=== PATIENT | female | born 1960 | race Caucasian/White ===

== ENCOUNTER → 2021-09-04 | Outpatient (CLI) | payer BC ==
[~2021-09-04] MED LIST: BEBTELOVIMAB (EUA) 175 MG/2 ML VIAL IV ONE; SODIUM CHLORIDE 0.9% 500 ML 500 ML in EMPTY BAG 1 BAG IV PRN
[2021-09-04 13:02] VITALS: RESP 16; TEMP 98.2
[2021-09-04 13:57] VITALS: BP 130/68; PULSE 63
== END ==
LOC: PROCWHC3 12:44
PROVIDERS: ATTEND Physician Assistant
DX: U07.1 COVID-19 (principal); E66.9 Obesity, unspecified; Z68.28 Body mass index [BMI] 28.0-28.9, adult
CPT/HCPCS: 96374; Q0222; M0222

== ENCOUNTER → 2023-07-11 | Outpatient (CLI) | payer BC ==
[2023-07-11 10:01] VITALS: BP 159/87; PULSE 66; RESP 16; TEMP 98.5
--- NOTE | 2023-07-11 13:16 | P.PAINPG ---
PQRS Measure Charge Sheet Comment: HISTORY OF PRESENT ILLNESS: A 62 yr old female as a referral from Dr Cee presents today w severe and chronic neck pain secondary to DDD, spondylosis and facet arthropathy without myelopathy for evaluation. Pt states pain level is provoked at 9/10 in intensity, constant, localized in the mid to lower cervical spine, predominantly axial, achy in character w occasional shooting pain towards the BL shoulders. Pain is provoked by over activity. Pain is alleviated by PT x 6 wks in Fall 2022, physician guided exercises/ stretches daily since Fall 2022, massage therapy monthly x 3 sessions in 2022, medications (Mobic), heat, manual massage, repositioning and rest. Cervical disability score at 19. PMH: OA, Hyopothyroidism, Hyperlipidemia PSH: Appendectomy, C section, R Shoulder Surgery, L Wrist Surgery SH: Negative x3 FH: Non contributory All: See list Meds: See list REVIEW OF ORGAN SYSTEMS: CONSTITUTIONAL: No fevers or chills. No recent weight loss. NEUROLOGICAL: + numbness and tingling along the distal extremities. No seizure disorders or headaches. MUSCULOSKELETAL: + pain PSYCHIATRIC: Denies current depression or suicidal thoughts. Physical Examinations : Constitutional : Cooperative , not in acute distress . Neurologic : Cranial nerve II to XII intact. No focal neurological deficits. Psychiatric : alert & oriented x 3. Matching mood & appropriate affect. Judgment & insight intact. Musculoskeletal : Cervical Spine Motor strength in the deltoid and biceps: Normal right side. Normal Left side Motor strength biceps and the wrist extensors: Normal right side . Normal left side Motor strength in the triceps muscle: Normal right side. Normal left side Deep tendon reflexes: Normal at the biceps. Normal at Brachioradialis. Normal at triceps Vertebral body tenderness to deep palpation over C6 Cervical facet loading test: positive bilaterally Spurling test: positive bilaterally C6- C7 Neck distraction test: positive bilaterally Shelbi sign: positive bilaterally Lumbar spine Motor strength lower extremities ,thigh and legs 5/5 Right side , 5/5 Left side Deep tendon reflexes : Normal Knee Jerk. Normal Ankle Jerk Vertebral body tenderness over Marcelino Test positive Lumbar facet Loading Test: positive Right / positive Left Range of motion of the lumbar spine Flexion 30 degrees, extension 10 degrees Straight Leg Raise test: Left/ Right positive at degree Khadijah test: positive right / positive left. Severe tenderness over the Sacroiliac joint on the Right / Left sides Gaenslen test: positive bilaterally Seated flexion test: positive bilaterally. Sacral spine : Severe tenderness over the Sacroiliac joint: right side / left side Range of motion: Flexion of the lumbar spine <60 degrees Range of motion: Extension of the lumbar spine <20 degrees Gaenslen's Test positive Khadijah test: positive right side / left side Thigh Thrust Test Sacral Thrust Test Imaging: MRI noncontrast of the cervical spine from 11/10/2022 reviewed Assessment/ Plan : Cervical DDD Recommendation of CATY C6-C7 #1. May series of injections for optimal pain relief. Risks, benefits of procedure discussed and patient verbalized understanding. Admits to anti- coagulant use or medical history of diabetes. Protocol for discontinuation/ continuation of medications rashid procedure discussed. All questions answered. I have spent greater than 30 minutes on patient care today. Dr Weems was available by phone for the evaluation of this patient. The time was used to review the medical records including relevant urine studies and Prescription history (MAPs), review of the available imaging, evaluation and examination of the patient, coordination of care with the medical staff and if applicable referring physicians, as well as creation of the medical record Controlled Substance Measures - Controlled Substance Measures Is patient prescribed a controlled substance at discharge?: No
== END ==
LOC: PNWHC3 08:08
PROVIDERS: ATTEND Specialist
DX: M50.123 Cervical disc disorder at C6-C7 level with radiculopathy (principal); M47.22 Other spondylosis with radiculopathy, cervical region; M19.90 Unspecified osteoarthritis, unspecified site
CPT/HCPCS: 99211

== ENCOUNTER 2023-08-04 06:04 | Day surgery (SDC) | payer BC ==
[2023-08-02 11:08] VITALS: BMI 28.3
[2023-08-04] MEDS ORDERED: LACTATED RINGERS 1,000 ML IV SCH (06:46)
[2023-08-04 07:21] VITALS: TEMP 98.7
[2023-08-04] MEDS ORDERED: DEXAMETHASONE SOD PHOSPHATE 10 MG/ML 1 ML VIAL ONE (07:22)
[2023-08-04] MEDS ORDERED: IOPAMIDOL M200 10 ML VIAL ONE (07:22)
--- NOTE | 2023-08-04 07:31 | P.PCN ---
Date of Procedure: 08/04/23 Procedure(s) Performed: . PROCEDURE 1. Cervical epidural steroid injection under fluoroscopic guidance, C6-7 (fluoroscopy images available in the radiology department ) 2. Cervical epidurogram. PREOPERATIVE DIAGNOSIS: 1- Cervical Degenerative Disc Diseases 2-cervical spondylosis with cervical Facet arthropathy without myelopathy.4-cervical spinal stenosis POSTOPERATIVE DIAGNOSIS: : 1- Cervical Degenerative Disc Diseases , 2-cervical spondylosis with cervical Facet arthropathy without myelopathy. 4-cervical spinal stenosis ANESTHESIA: Local anesthesia with lidocaine 1% 3 ml only EBL 0 PROCEDURE INDICATION: The patient with neck pain and radiculitis unresponsive to conservative treatment consents for procedure. PROCEDURE DESCRIPTION / TECHNIQUE: The patient was seen and identified in the preoperative area. Risks, benefits, complications, including but not limited to infections ,bleeding , allergic reactions to the medications ,and not complete pain releife, and alternatives were discussed with the patient, the patient agreed to proceed with the procedure and signed the consent. Patient was taken to the OR and time out was completed. The patient was placed in the prone position on the procedure table. A pillow was placed under the patients chest to increase the cervical interlaminar space. The cervical area was prepped and draped in the usual sterile fashion. Vital signs were closely monitored during the procedure. Using anterior-posterior fluoroscopy, the C6-7 interlaminar space was identified and the skin over this site was marked and then infiltrated with 1% lidocaine subcutaneously. Subsequently, a 20-gauge 3-1/2-inch Tuohy epidural needle was inserted and advanced toward the epidural space by means of the ``hanging-drop technique and guided by AP and lateral fluoroscopy. The correct needle position in the epidural space was verified with the injection of 2 mL of the water soluble contrast dye Isovue-200 and observing an excellent epidurogram with the epidural spread of the dye, after negative aspiration for blood and CSF and in the absence of paresthesias. then, mixture containing 20 mg Dexamethasone and 2 ml of preservative-free normal saline injected and a washout of epidurogram was seen. Needle was withdrawn intact, skin was cleansed, and bandages were applied. Complications= none. Disposition= patient was placed in supine position and transferred to the recovery room area in stable condition and there was no evidence of upper or lower extremity motor or sensory deficit after the procedure patient was discharged from recovery room after discharge criteria met and home discharge instructions was given by the staff and patient will follow with the pain clinic in 2-4 weeks
[2023-08-04 08:05] VITALS: BP 134/67; PULSE 76; RESP 18
--- NOTE | 2023-08-04 08:16 | FL ---
Fluoroscopy History: GWENDOLYN fl 2.1 dap [id number] gwendolyn
== END 2023-08-04 08:03 | disposition home or self-care (01) ==
LOC: ORPAIN 06:04
PROVIDERS: ATTEND Specialist
DX: M50.123 Cervical disc disorder at C6-C7 level with radiculopathy (principal); M47.22 Other spondylosis with radiculopathy, cervical region; M48.02 Spinal stenosis, cervical region
CPT/HCPCS: 62321; J1100; Q9966

== ENCOUNTER → 2023-08-25 | Outpatient (CLI) | payer BC ==
[2023-08-25 10:08] VITALS: BP 139/66; PULSE 69; RESP 16
--- NOTE | 2023-08-25 11:14 | P.PAINPG ---
Subjective Progress Note Date: 08/25/23 Principal diagnosis: neck pain Ms. Marquez is a 62-year-old pleasant female came to the [facility] pain clinic for postprocedure evaluation. Patient has ongoing pain for many years. Patient describes pain is aching, throbbing, constant type of pain. pain is not radiating to her upper extremities. She had cervical C6-C7 epidural steroid injection on 08/04/2023 which helped more than 80% pain relief, still helping her. Patient rated pain levels are1 out of 10 in severity. With the help of medications pain levels are 0-1 out of 10 in severity. Activities making pain worse. Medications, resting, intervention procedure helping in relieving patient's pain. Patient pain some days better than others. Denied any side effects with the medications. Denied any bowel or bladder problems at this time. patient is not using any walking aids for walking support. Patient denies any suicidal or homicidal ideations intent or plan. Patient denies any auditory or visual hallucinations. Patient denied any red flag symptoms related to pain. 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 Sensation grossly intact Lower extremity: Normal strength, and normal range of motion Cervical spine: Paravertebral tenderness: Positive Cervical spine facetload test: negative Cervical spine Spurling test: negative - Constitutional Constitutional Comment(s): 13 point review of symptoms negative except as mentioned in the history of present illness Assessment and Plan Assessment: cervical spondylosis without myelopathy Cervical degenerative disc disease Cervical myofascial pain syndrome Plan: #1 Diagnoses, prognosis, and multiple treatment options including but not limited to physical therapy, interventional therapy, adjunct medication therapy, narcotic medication, and surgical options were discussed with the patient. And all questions were answered to the patient's satisfaction. #2 treatment plan agreement : Patient was thoroughly discussed regarding the treatment options, alternatives, and importance of exercises as tolerated. Patient clearly understood. #3 Patient was counseled on importance of regular exercise. Including kadie chi, aerobic exercises as tolerated. Which helps for chronic pain, and overall well- being. #4 investigations: MAPS- reviewed , urine drug test- none #5 diagnostic tests: none #6 consultation : none # 7 interventional procedures:cervical C6-C7 epidural as needed in future. #8 medications none from the pain clinic #9 morphine milligrams equivalents dose ( MME) per day: none # 10 TENS unit's, and percussion massage device #11 disposition: scheduled to follow up with pain clinic in 12 weeks duration. Time with Patient: Less than 30 PQRS Measure Charge Sheet Measure #130: Documentation of Current Meds in Medical Chart: Patient's medications documented in chart Measure #226: Tobacco Use: Screen & Cessation Intervention: Pt not a tobacco user Measure #111: Pneumonia Vaccination: Pneumococcal vaccine administered or previously received Measure #47: Advance Care Plan: Advance care planning discussed & documented, plan or surrogate given Measure #412: Opioid Treatment Agreement: No documentation of signed opioid treatment agreement Measure #408: Opioid Therapy Follow-up Evaluation: Patient had NO f/u eval minimum every 3 months during opioid therapy Measure #317: Preventitive Care & Scrn High Bld Press & F/U: Pre-hypertensive or hypertensive BP documented, pt will f/u with PCP Measure #128: Body Mass Index (BMI) Screening & Follow-up: BMI documented ABOVE normal parameters - f/u documented Measure #131: Pain Assessment & Follow-up: Pain positive & plan documented Measure #431: Unhealthy Alcohol Use Preventative Care & Scrn: Patient not identified as an unhealthy alcohol user Mode of Arrival: Ambulatory PQRS Narrative: Blood Pressure 139/66 Pain Intensity [Right Lower 1 Neck] Scale Used Numeric (1 - 10) Hx Alcohol Use (MH) No Home Medications: Ambulatory Orders Levothyroxine Sodium [Synthroid] 175 mcg PO DAILY 08/02/23 Meloxicam [Mobic] 15 mg PO DAILY 08/02/23 Sertraline [Zoloft] 100 mg PO DAILY 08/02/23 Simvastatin [Zocor] 20 mg PO HS 08/02/23 traZODone HCL [Desyrel] 50 mg PO HS 08/02/23 Controlled Substance Measures - Controlled Substance Measures Is patient prescribed a controlled substance at discharge?: No
== END ==
LOC: PNWHC3 08:47
DX: M50.30 Other cervical disc degeneration, unspecified cervical region (principal); M47.812 Spondylosis without myelopathy or radiculopathy, cervical region; G89.29 Other chronic pain; M79.18 Myalgia, other site; G89.18 Other acute postprocedural pain; Z71.82 Exercise counseling
CPT/HCPCS: 99211

== ENCOUNTER → 2024-05-28 | Outpatient (CLI) | payer BC ==
[2024-05-28 09:32] LABS: INR 0.9 (<1.2); Partial Thromboplastin Time 22.2 sec (22.0-30.0); Prothrombin Time 10.2 sec (10.0-12.5)
--- NOTE | 2024-05-28 09:34 | XR ---
EXAMINATION TYPE: XR chest 2V DATE OF EXAM: 05/28/2024 9:11 AM COMPARISON: None CLINICAL INDICATION: Female, 63 years old with history of Z01.818 ENCOUNTER FOR OTHER PREPROCEDURAL Z 22.322; [facility] TECHNIQUE: XR chest 2V Frontal and lateral views of the chest. FINDINGS: Lungs/Pleura: There is no evidence of pleural effusion, focal consolidation, or pneumothorax. Pulmonary vascularity: Unremarkable. Heart/mediastinum: Cardiomediastinal silhouette is unremarkable. Musculoskeletal: No acute osseous pathology. Other findings: None IMPRESSION: No acute cardiopulmonary disease/process. [facility], , 05/28/2024 9:31 AM
[2024-05-28 16:57] LABS: Basophils # (A) 0.05 X 10*3/uL (0.00-0.10); Basophils % (A) 0.9 %; Eosinophils # (A) 0.22 X 10*3/uL (0.04-0.35); HCT 39.8 % (37.2-46.3); HGB 12.9 g/dL (12.0-15.0); Lymphocytes # (A) 1.31 X 10*3/uL (0.90-5.00); Lymphocytes % (A) 23.6 %; MCH 29.5 pg (27.0-32.0); MCHC 32.4 g/dL (32.0-37.0); MCV 90.9 FL (80.0-97.0); Mean Platelet Volume 10.1 FL (9.5-12.2); Monocytes # (A) 0.53 X 10*3/uL (0.20-1.00); Monocytes % (A) 9.5 %; NRBC Per 100 WBC 0 X 10*3/uL (0.00-0.01); Neutrophils # (A) 3.44 X 10*3/uL (1.80-7.70); Neutrophils % (A) 61.8 %; Platelet Count 280 X 10*3/uL (140-440); RBC 4.38 X 10*6/uL (4.10-5.20); RDW 12.8 % (11.5-14.5); WBC 5.56 X 10*3/uL (4.50-10.00)
[2024-05-28 17:15] LABS: Appearance,Urine Clear (Clear); Bilirubin,Urine Negative (Negative); Blood,Urine Small (Negative); Color,Urine Yellow (Yellow); Ketones,Urine Negative (Negative); Nitrite,Urine Negative (Negative); Specific Gravity,Urine 1.019 (1.001-1.030)
[2024-05-28 17:24] LABS: Bacteria,Urine None Seen (None Seen)
[2024-05-28 17:27] LABS: BUN/Creat Ratio 29.78 Ratio (12.00-20.00); Blood Urea Nitrogen 26.8 mg/dL (9.0-27.0); Calcium 9.4 mg/dL (8.7-10.3); Carbon Dioxide 26.2 mmol/L (21.6-31.8); Chloride 106 mmol/L (96-109); Glucose 95 mg/dL (70-110); Potassium 4.2 mmol/L (3.5-5.5); Sodium 142 mmol/L (135-145)
== END | disposition home or self-care (01) ==
LOC: LABWHC1 08:14
PROVIDERS: ATTEND Orthopaedic Surgery Orthopaedic Surgery of the Spine
DX: Z01.818 Encounter for other preprocedural examination (principal); M48.00 Spinal stenosis, site unspecified; Z22.322 Carrier or suspected carrier of Methicillin resistant Staphylococcus aureus
CPT/HCPCS: 71046; 80048; 81001; 85025; 85610; 85730; 86850; 86900; 86901; 87070; 93005

== ENCOUNTER 2024-06-06 08:37 | Observation (INO) | payer BC, MEDICARE ==
[~2024-06-06 08:37] MED LIST changes: -BEBTELOVIMAB (EUA) 175 MG/2 ML VIAL IV ONE; +LIDOCAINE 1% (10MG/ML) FOR IV START INTRADERMA PRN; +MIDAZOLAM 2 MG/2 ML VIAL IV PRN; -SODIUM CHLORIDE 0.9% 500 ML 500 ML in EMPTY BAG 1 BAG IV PRN; +fentaNYL (PF) 50 MCG/ML 2 ML AMP IVP PRN
[2024-06-06] MEDS: IV FLUID CONTINUATION 1,000 ML IV ONE ×2 (09:15→15:55)
[2024-06-06] MEDS: ONDANSETRON 4 MG/2 ML VIAL IVP ONE (09:35)
[2024-06-06] MEDS: LACTATED RINGERS 1,000 ML IV SCH (09:36)
[2024-06-06] MEDS ORDERED: HYDROmorphone (PF) 1 MG/ML ONE (10:29)
[2024-06-06] MEDS ORDERED: GLYCOPYRROLATE 0.2 MG/ML 2 ML VIAL ONE (10:29)
[2024-06-06] MEDS ORDERED: ROCURONIUM 10 MG/ML (5 ML VIAL) IV ONE (10:29)
[2024-06-06] MEDS ORDERED: fentaNYL (PF) 50 MCG/ML 2 ML AMP ONE (10:29)
[2024-06-06] MEDS ORDERED: TRANEXAMIC 1,000 MG/100ML-NACL PREMIX BAG ONE (10:29)
[2024-06-06] MEDS ORDERED: PROPOFOL 10 MG/ML 20 ML VIAL IV ONE (10:29)
[2024-06-06] MEDS ORDERED: SUCCINYLCHOLINE CHLORIDE 200 MG/10 ML VIAL IV ONE (10:29)
[2024-06-06] MEDS ORDERED: KETAMINE HCL IN 0.9 % NACL 50 MG/5 ML SYRINGE ONE (10:29)
[2024-06-06] MEDS ORDERED: PHENYLEPHRINE 10 MG/ML VIAL ONE (10:29)
[2024-06-06] MEDS ORDERED: MIDAZOLAM 2 MG/2 ML VIAL ONE (10:29)
[2024-06-06] MEDS ORDERED: LIDOCAINE 1% INJ 10MG/ML (20 ML MDV) ONE (10:29)
[2024-06-06] MEDS: ceFAZolin 1,000 MG in SODIUM CHLORIDE 0.9% IRRIGATIO 1,000 ML IRRIGATION PRN ×2 (10:38→13:31)
[2024-06-06] MEDS: LACTATED RINGERS 1,000 ML IV ONE (10:45)
[2024-06-06] MEDS: LIDOCAINE 2%-EPI 1:100,000 20 ML VIAL SQ ONE ×3 (10:58→11:03)
[2024-06-06] MEDS: THROMBIN (BOVINE) 5,000 UNIT VIAL TOPICAL ONE (10:58)
[2024-06-06] MEDS: BUPIVACAINE (PF) 0.5% 30 ML VIAL SQ ONE ×3 (10:59→11:03)
--- NOTE | 2024-06-06 14:41 | P.OP ---
Date of Procedure: 06/06/24 Preoperative Diagnosis: Spondylolisthesis L4-5, L3-4, spinal stenosis L3-4 and severe stenosis L4-5, low back pain, lower extremity colopathy, degenerative disc disease, spondylolysis, facet arthrosis Postoperative Diagnosis: Same Anesthesia: GETA Pathology: none sent Condition: stable Disposition: PACU Description of Procedure: DESCRIPTION OF PROCEDURE(S): BRIEF OPERATIVE NOTE Preoperative Diagnosis: Spondylolisthesis L4-5, L3-4, spinal stenosis L3-4 and severe stenosis L4-5, low back pain, lower extremity colopathy, degenerative disc disease, spondylolysis, facet arthrosis Postoperative Diagnosis: Same Procedure: Laminectomy and decompression L3-4 L4-[address] navigation aided Minimally invasive Posterior lateral decompression and facet and pars fusion L3-4 L4-5 Minimally invasive Transforaminal lumbar interbody fusion for a 360 fusion L3-4 L4-5 Discectomy for decompression L3-4 L4-5 Placement of interbody graft L3-4 L4-5 Use of computer navigation for fusion and placement of hardware Local autogenous bone grafting Aspiration of bone marrow from the vertebral body pedicle of L4 Use of bone graft extenders Surgeon: Dr. Cee Kiln Door Builder: Cristofer ALEXANDER who is present throughout the entire the case persistence during positioning, dissection, exposure, visualization, and all crucial elements of the case as well as closure. Anesthesia: General anesthesia per Dr. Lugo Estimated blood loss: Approximately 350 mL Complications: None apparent Components implanted: K2M minimally invasive [place] pedicle screw system withscrews measuring 6.5 mm in diameter to rods one [place] interbody cage as well as an expandable interbody cage with 10 mL of osteo amp bio4 bone graft substitute and 30 mL of the BX bone fibers to supplement the local autogenous bone graft and bone marrow aspirate Disposition: To recovery room in good stable condition. OPERATIVE INDICATIONS The patient has had severe issues at their lower extremity in her lower back over the past several years with significant worsening over the past several months. Over the past few months the patient had pain at their back and their lower extremities. The patient is having severe radicular symptoms at their lower extremity with weakness. The patient is having significant pain in their back. They are unable to obtain any comfort. We did aggressive conservative treatment with medications therapy and interventional pain management however thery were not having any relief. The patient also showed evidence of a listhesis with some dynamic instability grade 2-3 at L4-5 and grade 1-2 at L3- 4. The patient has been through conservative treatment. We discussed various treatment options including surgery, and the patient wishes to proceed with surgery We discussed the risk, patient's alternatives and benefits of surgery including but not limited to, risk of bleeding risk of infection, risk of need for further surgery, risk of decreased, loss of motion, muscle function, malunion nonunion, hardware failure, nerve damage, paralysis, heart attack, blindness and . They understood issues with the current pandemic and the possibility of exposure. OPERATIVE SUMMARY After discussing all the risks, patient alternatives and benefits at length, the patient elected to proceed with surgical intervention, signed informed consent, and presented for their procedure. The patient was seen and examined in the p reoperative holding area and the surgical site was marked. The patient was given antibiotics and brought to the operating room. The patient was sedated and intubated by anesthesia in standard fashion. The patient was positioned on to the operating room table in a prone position on the appropriate frame which was well-padded and well molded. We were careful to pad any bony prominences and pressure points. We were careful to maintain the patient's cervical spine and good neutral alignment and position throughout. The patient was prepped and draped in a normal standard fashion. An appropriate timeout and keystone protocol performed. We were able to proceed with the surgery. The local wound area was infiltrated with local anesthetic. Over the right iliac crest I was able to make small stab incisions and establish a guidepin screw fixation to the iliac crest 2. I was able place the computer referencing device over the guidepins to establish an appropriate reference point for the Ziem CT navigation. We then were able to place patient in an appropriate drape and do a navigation spin for visualization and 3-D reconstruction of the lumbar spine. I was able utilize C-arm guidance and navigation to establish appropriate position over the pedicles bilaterally at the appropriate levels at L3-4 and L4-5. With the appropriate levels confirmed was able to make small incisions over the appropriate pedicle sites bilaterally. Utilizing the computer navigation device I was able to establish bony landmarks at the right iliac crest for a bony reference point for the navigation device. I was able to establish a Jamshidi needle over the lateral aspect of the pedicle and advanced the trocar into the pedicle being careful not to breech superiorly inferiorly medially or laterally using computer navigation device. Position was confirmed regularly with AP and lateral images on C-arm and with the computer navigation device at the appropriate levels bilaterally. I was able to establish the trocar into the pedicle appropriately into the posterior aspect of the vertebral body bilaterally at the appropriate levels. This was done at each of the pedicle positions and each of the vertebrae. At the superior vertebrae I was able to take approximately 25 mL of bone aspiration for use later in the case to supplement the allograft and autograft bone. I was able place the guidewire into the trocar and into the vertebral body appropriately under C-arm guidance. Dissection was taken down over the wire to the appropriate starting position for the screw placed. The appropriate length screw was chosen, threaded over the guidewire and screwed appropriately into the pedicle and vertebral body under C-arm guidance in excellent alignment and position with good bony purchase. This is done at each of the screw sites at the appropriate levels of L3-4 and L4-5. With the screws intact I extended the incision to connect the screw hole sites on the left side. I dissected down to establish access over the pars and lamina to the base of the spinous process. I was able to expose the facet joint. The capsule the facet was taken down and showed some severe facet arthrosis at the joint. I started at L4-5 and then moved to L3-4 similarly. I was able to use a combination of curettes and Kerrison rongeurs and a high-speed drill to take down the facet joint and do a facetectomy. I was able get excellent foraminal decompression and central decompression with undermining across midline to perform a laminectomy centrally and contralaterally. I was able get good central decompression. The ligamentum flavum was taken down to further decompress centrally and at bilateral neural foramen. There was very severe stenosis at L4-5 and significant stenosis at L3-4. I was able to expose the disc space and visualize the traversing nerve root. Note was made of some disc protrusion and disc herniation that was abutting the traversing nerve root at the level causing further compression of the nerve root. I was able to establish a annulotomy at the appropriate level protecting soft tissue and neural structures. Note was made of some disc desiccation at the disc. I pe rformed a complete discectomy with accommodation of curettes and rasps and scrapers. I was able get good endplate preparation at the disc space. I sized for the appropriate size interbody spacer protecting the soft tissue and neural structures. I was able to get excellent decompression at the area. The wound was copiously irrigated and suctioned dry. There is no evidence of any dural tear or leak. I was able to pack the disc space with local autogenous bone graft as well as a small amount of bone graft which was also placed into the interbody cage itself. Protecting the soft tissue structures and neural structures I was able place the interbody cage in good alignment and good position with good fit and fill at the interbody space. Position was confirmed with C-arm guidance. This was done first at L4-5 and then at L3-4. At L3-4 there was a tall disc and I used an expandable interbody cage which was expanded under C-arm guidance. Good hemostasis maintained. There is no evidence of any dural tear or leak. The wound was irrigated and suctioned dry. With the hardware intact, intraoperative C-arm imaging was again taken which showed good alignment and position of the hardware at the appropriate levels. We were then able to measure, contour and place the rods and appropriate hardware bilaterally. I was able to get further reduction of the listhesis at L3-4 and L4-5. I was able to place capcrews, tighten them down, and torque them with the torque screwdriver appropriately. With this intact I was able to place the local autogenous bone graft with additional bone graft enhancer as necessary into the posterior lateral gutters over the decorticated transverse processes and facet joints on the contralateral side. The remainder of the bone graft was placed over the facet joint on the contralateral side after taking down the facet joint capsule. With the bone graft intact, a stable construct, and good decompression at the appropriate levels, we were able to proceed with closure. Good hemostasis was maintained. There is no evidence of dural tear or leak. The fascia was closed for a watertight closure. he subcuticular tissue was closed with absorbable suture. The wound was cleaned and dried and dressed with the appropriate dressing. The drapes were broken down. The patient was gently rolled back onto their hospital bed being careful to maintain their cervical spine and good neutral alignment and position. They were woken up by anesthesia, extubated, and brought to the recovery room in good stable condition. The patient will be admitted to the hospital for appropriate postoperative care, medical management and monitoring. We will continue to follow them closely about the postoperative course.
--- NOTE | 2024-06-06 14:56 | FL ---
EXAMINATION TYPE: FL guidance operating room, XR lumbar spine 2 or 3V DATE OF EXAM: 06/06/2024 FLUOROSCOPY Minimally invasive LUMBAR FUSION, 24SEC FL TIME, CFI=410.17 [facility], , 06/06/2024 2:54 PM
[2024-06-06] MEDS: HYDROmorphone 0.5 MG/0.5 ML SYRINGE IVP PRN (15:07)
[2024-06-06] MEDS: DEXAMETHASONE SOD PHOSPHATE 4 MG/ML 1 ML VIAL IV ONE (16:51)
[2024-06-06] MEDS ORDERED: HYDROmorphone 0.5 MG/0.5 ML SYRINGE IVP PRN (17:17)
[2024-06-06] MEDS ORDERED: BENZOCAINE/MENTHOL LOZENG 1 EACH LOZENGE MUCOUS MEM PRN (17:17)
[2024-06-06] MEDS: HYDROmorphone 1 MG/ML 1 ML SYRINGE IVP PRN (18:55)
--- NOTE | 2024-06-06 20:08 | P.CONS ---
History of Present Illness - Reason for Consult Consult date: 06/06/24 Medical management Requesting physician: Krystle Cee - Chief Complaint Lumbar surgery - History of Present Illness Pleasant 63-year-old patient, follows with Dr. Za Russo. Chronic stable medical condition include hyperlipidemia, hypothyroid, depression anxiety. Acute osteoarthritis of multiple including the cervical spine. Patient trouble with low back pain for several years. Including pain going down both legs. No involvement of bladder or bowels. Patient today underwent lumbar surgery by Dr. Cee. Postoperatively laying in bed. Pain is present. No nausea vomiting. Denies any cardiac history. Review of systems: GEN.: None EYES: None HEENT: None NECK: None RESPIRATORY: None CARDIOVASCULAR: None GASTROINTESTINAL: None GENITOURINARY: None MUSCULOSKELETAL: Joint pain especially in the neck LYMPHATICS: None HEMATOLOGICAL: None PSYCHIATRY: None NEUROLOGICAL: Was having radiculopathy from the lower back pain Social history: . Does not smoke or drink alcohol. Physical examination: VITAL SIGNS: 76, 16, 146 x 79, 94% room air GENERAL: BMI 27.9, lying bed awake not in distress. EYES: Pupils equal. Conjunctiva nagi l. HEENT: External appearance of nose and ears normal, oral cavity grossly normal. NECK: JVD not raised; masses not palpable. HEART: First and second heart sounds are normal; no edema. LUNGS: Respiratory rate normal; clear to auscultation. ABDOMEN: Soft, nontender, liver spleen not palpable, no masses palpable. PSYCH: Alert and oriented x3; mood and affect nagi l. MUSCULOSKELETAL:No Clubbing/cyanosis;muscles-grossly intact. Dressing over the surgical site NEUROLOGICAL: Cranial nerves grossly intact; no facial asymmetry, power and sensation grossly intact. LYMPHATICS: No lymph nodes palpable in the axilla and neck INVESTIGATIONS, reviewed in the clinical context: May 28, 2024: White count 5.5 hemoglobin 12.9 platelets 280 sodium 142 potassium 4.2 creatinine 0.9 Assessment plan: -Preoperative Diagnosis: Spondylolisthesis L4-5, L3-4, spinal stenosis L3-4 and severe stenosis L4-5, low back pain, lower extremity colopathy, degenerative disc disease, spondylolysis, facet arthrosis Postoperative Diagnosis: Same Procedure: Laminectomy and decompression L3-4 L4-[address] navigation aided Minimally invasive Posterior lateral decompression and facet and pars fusion L3-4 L4-5 Minimally invasive Transforaminal lumbar interbody fusion for a 360 fusion L3-4 L4-5 Discectomy for decompression L3-4 L4-5 Placement of interbody graft L3-4 L4-5 Use of computer navigation for fusion and placement of hardware Local autogenous bone grafting Aspiration of bone marrow from the vertebral body pedicle of L4 Use of bone graft extenders Surgeon: Dr. Cee -Primary osteoarthritis multiple joints Pain medication as needed -Hyperlipidemia Zocor 20 mg nightly -Hypothyroid Synthroid 175 mcg a day -Depression anxiety Zoloft 100 mg a day Home medication resumed. Received IV cefazolin for infection prophylaxis. Received 1 dose of Decadron. Pain medications in place. On regular diet. Care was discussed with the patient. Has pneumatic compression sleeves Thank you Dr. Cee Past Medical History Past Medical History: Hyperlipidemia, Thyroid Disorder History of Any Multi-Drug Resistant Organisms: None Reported Past Surgical History: Appendectomy, Section, Orthopedic Surgery Additional Past Surgical History / Comment(s): RT ROTATOR CUFF REPAIR. COLONOSCOPY. BILAT CTR Past Anesthesia/Blood Transfusion Reactions: No Reported Reaction Past Psychological History: Anxiety, Depression Smoking Status: Never smoker Past Alcohol Use History: None Reported Past Drug Use History: None Reported - Past Family History Mother Family Medical History: No Reported History Medications and Allergies Home Medications Medication Instructions Recorded Confirmed Type Levothyroxine Sodium [Synthroid] 175 mcg PO DAILY 08/02/23 06/06/24 History Meloxicam [Mobic] 15 mg PO DAILY 08/02/23 06/06/24 History Sertraline [Zoloft] 100 mg PO DAILY 08/02/23 06/06/24 History Simvastatin [Zocor] 20 mg PO HS 08/02/23 06/06/24 History traZODone HCL [Desyrel] 50 mg PO HS 08/02/23 06/06/24 History Allergies Allergy/AdvReac Type Severity Reaction Status Date / Time No Known Allergies Allergy Verified 06/06/24 09:13 Physical Exam Vitals: Vital Signs Temp Pulse Pulse Resp BP Pulse Ox 06/06/24 18:28 76 146/79 94 L 06/06/24 18:15 70 155/80 97 06/06/24 18:00 71 153/78 96 06/06/24 17:30 69 145/76 93 L 06/06/24 17:15 67 163/74 100 06/06/24 17:00 84 143/67 98 06/06/24 16:58 85 18 143/67 97 06/06/24 16:19 79 16 142/66 98 06/06/24 16:04 75 16 113/56 99 06/06/24 15:49 69 16 111/53 99 06/06/24 15:34 73 16 125/57 99 06/06/24 15:19 76 16 136/61 98 06/06/24 15:04 77 16 153/77 98 06/06/24 14:49 69 14 131/63 99 06/06/24 14:34 97.1 F L 74 12 132/70 95 06/06/24 09:32 97.0 F L 72 16 143/71 98 Intake and Output 06/06/24 06/06/24 06/06/24 06:59 14:59 22:59 Intake Total 1951 200 Output Total 675 700 Balance 1277 -500 Intake: IV 1951 100 Oral 100 Output: Urine 325 700 Estimated Blood Loss 350 Other: Weight 67 kg 67 kg
[2024-06-06] MEDS: HYDROcodone/APAP 5-325MG 1 EACH TAB PO PRN (20:22)
[2024-06-06] MEDS: ATORVASTATIN 10 MG TAB PO SCH (20:23)
[2024-06-06] MEDS: traZODone HCL 50 MG TAB PO SCH (20:23)
[2024-06-07] MEDS: ONDANSETRON 4 MG/2 ML VIAL IVP PRN (03:15)
[2024-06-07] MEDS: CYCLOBENZAPRINE 10 MG TAB PO PRN (05:11)
[2024-06-07] MEDS: LEVOTHYROXINE 88 MCG TAB PO SCH (05:53)
[2024-06-07] MEDS: SERTRALINE 100 MG TAB PO SCH (08:06)
[2024-06-07] MEDS: SENNOSIDES-DOCUSATE SODIUM 1 EACH TAB PO SCH (08:06)
[2024-06-07 08:56] LABS: BUN/Creat Ratio 17.29 Ratio (12.00-20.00); Blood Urea Nitrogen 12.1 mg/dL (9.0-27.0); Calcium 8.5 mg/dL (8.7-10.3); Chloride 100 mmol/L (96-109); Glucose 143 mg/dL (70-110); Sodium 135 mmol/L (135-145)
[2024-06-07] MEDS: HYDROcodone/APAP 10-325MG 1 EACH TAB PO PRN (09:07)
[2024-06-07 09:15] LABS: Basophils # (A) 0.04 X 10*3/uL (0.00-0.10); Basophils % (A) 0.3 %; Eosinophils # (A) 0 X 10*3/uL (0.04-0.35); Eosinophils % (A) 0 %; HGB 10.5 g/dL (12.0-15.0); Lymphocytes # (A) 0.67 X 10*3/uL (0.90-5.00); Lymphocytes % (A) 5.3 %; MCHC 32.8 g/dL (32.0-37.0); MCV 91.4 FL (80.0-97.0); Mean Platelet Volume 9.6 FL (9.5-12.2); Monocytes # (A) 1.06 X 10*3/uL (0.20-1.00); Monocytes % (A) 8.3 %; NRBC Per 100 WBC 0 X 10*3/uL (0.00-0.01); Neutrophils # (A) 10.87 X 10*3/uL (1.80-7.70); Neutrophils % (A) 85.6 %; Platelet Count 227 X 10*3/uL (140-440); RDW 13.2 % (11.5-14.5)
[2024-06-07] MEDS: HYDROmorphone 1 MG/ML 1 ML SYRINGE IVP PRN (10:42)
--- NOTE | 2024-06-07 12:13 | P.PN ---
Progress Note - Text Progress Note Date: 06/07/24 Orthopedic Spine History of present illness: Patient is a pleasant 63-year-old female who is seen and examined at the bedside following posterior lateral decompression and fusion performed yesterday. Patient states they are doing ok post operatively. She was having significant difficulty with pain control this morning. Her medicines have been adjusted. Since that time her pain is better controlled. She was able to work with physical therapy today to transfer to a bedside chair. Her pain is most significant at her lumbar spine. She is not currently complaining of any lower extremity pain. Currently does not complain of nausea, vomiting, fever, or chills. Patient states pain has been adequately controlled currently. She is requiring oral and IV medications for pain control. Patient is eating without difficulty. Blandon catheter remains intact. Patient is currently being seen by medicine for postoperative medical management. Physical Exam Lumbar Fusion: Status post surgical day number 1 Patient is awake, alert, and oriented 3 Vital signs stable Good chest excursion with deep inspiration and expiration Abdomen soft nontender Dorsiflexion, plantarflexion, and extensor hallucis longus positive sustained bilaterally No signs or symptoms of DVT; no calf pain; pneumatic cuffs intact bilateral lower extremities Optifoam dressings are clean, dry, and intact over the lumbar spine and right iliac crest; no erythema, purulence, or signs of infection Neurovascularly intact bilaterally lower extremities Assessment: Status post L3-4 and L4-5 minimally invasive posterior lateral decompression and fusion with transforaminal lumbar interbody fusion Low back pain L3-4 and L4-5 spondylolisthesis L3-4 spinal stenosis L4-5 severe spinal stenosis Lumbar degenerative disc disease Lumbar spondylolysis Lumbar facet arthrosis Lower extremity radiculopathy Hyperlipidemia Hypothyroidism Plan: 1. Ambulate as tolerated; work with Physical Therapy to increase mobilization 2. Continue pain control with IV and oral medications; will plan to begin weaning the patient off of IV narcotic medication in anticipation for discharge home in the next 1-2 days 3. Dressings to remain intact with Optifoam; patient may shower with dressings intact 4. We will plan to discontinue her Blandon catheter today 5. Medical management can continue to manage patient for patient's other medical diagnoses 6. We will continue to follow the patient closely; patient has had some difficulty with pain control. We will continue to manage the patient's pain. She will most likely need another 2 to 3 days in the hospital postoperatively. 7. Patient can follow-up with Cristofer Fuentes PA-C or Dr. Emanuel Cee at [facility] in 2-3 weeks following discharge The patient is seen and examined at bedside. She is feeling more comfortable. Will have to get her Blandon out today. She will continue to progress with her mobility and pain control. I agree with the above.
--- NOTE | 2024-06-07 17:42 | P.PN ---
Progress Note - Text Progress Note Date: 06/07/24 - Chief Complaint Lumbar surgery - History of Present Illness Pleasant 63-year-old patient, follows with Dr. Za Russo. Chronic stable medical condition include hyperlipidemia, hypothyroid, depression anxiety. Acute osteoarthritis of multiple including the cervical spine. Patient trouble with low back pain for several years. Including pain going down both legs. No involvement of bladder or bowels. Patient today underwent lumbar surgery by Dr. Cee. Postoperatively laying in bed. Pain is present. No nausea vomiting. Denies any cardiac history. June 07: I came to see patient this morning. Physical therapy was done to get her to up to a recliner. Having significant back pain. Blandon catheter in place. Decreased appetite. Active Medications Acetaminophen (Acetaminophen Tab 325 Mg Tab) 650 mg PO Q6HR PRN PRN Reason: Mild Pain (Scale 1 to 3) Hydrocodone Bitart/Acetaminophen (Hydrocodone/Apap 10-325mg 1 Each Tab) 1 each PO Q4H PRN PRN Reason: Moderate Pain (Scale 4 to 6) Last Admin: 06/07/24 09:07 Dose: 1 each Hydrocodone Bitart/Acetaminophen (Hydrocodone/Apap 10-325mg 1 Each Tab) 2 each PO Q4H PRN PRN Reason: Severe Pain (Scale 7 to 10) Atorvastatin Calcium (Atorvastatin 10 Mg Tab) 10 mg PO HS [facility] Last Admin: 06/06/24 20:23 Dose: 10 mg Benzocaine/Menthol (Benzocaine/Menthol Lozeng 1 Each Lozenge) 1 each MUCOUS MEM Q4HR PRN PRN Reason: Sore Throat Cyclobenzaprine HCl (Cyclobenzaprine 10 Mg Tab) 10 mg PO TID PRN PRN Reason: Muscle Spasm Last Admin: 06/07/24 05:11 Dose: 10 mg Hydromorphone HCl (Hydromorphone 1 Mg/Ml 1 Ml Syringe) 1 mg IVP Q4HR PRN PRN Reason: Severe Pain (Scale 7 to 10) Last Admin: 06/07/24 15:07 Dose: 1 mg Lactated Ringer's (Lactated Ringers) 1,000 mls @ 20 mls/hr IV .Q24H TERI Stop: 07/06/24 06:19 Last Admin: 06/06/24 21:36 Dose: 20 mls/hr Levothyroxine Sodium (Levothyroxine 88 Mcg Tab) 176 mcg PO 0630 [facility] Last Admin: 06/07/24 05:53 Dose: 176 mcg Lidocaine HCl (Lidocaine 1% (10mg/Ml) For Iv Start) 0.1 ml INTRADERMA PER PROTOCOL PRN PRN Reason: IV Start Stop: 07/06/24 06:19 Ondansetron HCl (Ondansetron 4 Mg/2 Ml Vial) 4 mg IVP Q8HR PRN PRN Reason: Nausea And Vomiting Last Admin: 06/07/24 03:15 Dose: 4 mg Senna/Docusate Sodium (Sennosides-Docusate Sodium 1 Each Tab) 1 each PO DAILY [facility] Last Admin: 06/07/24 08:06 Dose: 1 each Sertraline HCl (Sertraline 100 Mg Tab) 100 mg PO DAILY [facility] Last Admin: 06/07/24 08:06 Dose: 100 mg Trazodone HCl (Trazodone Hcl 50 Mg Tab) 50 mg PO HS [facility] Last Admin: 06/06/24 20:23 Dose: 50 mg Social history: . Does not smoke or drink alcohol. Physical examination: VITAL SIGNS: 98.6, 66, 16, 149 x 70, 94% room air GENERAL: BMI 27.9, attempting to sit up on a recliner with physical therapy. Uncomfortable. EYES: Pupils equal. Conjunctiva nagi l. HEENT: External appearance of nose and ears normal, oral cavity grossly normal. NECK: JVD not raised; masses not palpable. HEART: First and second heart sounds are normal; no edema. LUNGS: Respiratory rate normal; clear to auscultation. ABDOMEN: Soft, nontender, liver spleen not palpable, no masses palpable. Blandon catheter PSYCH: Alert and oriented x3; mood and affect nagi l. MUSCULOSKELETAL:No Clubbing/cyanosis;muscles-grossly intact. Dressing over the surgical site INVESTIGATIONS, reviewed in the clinical context: June 07: White count 12.7 hemoglobin 10.5 platelets 227 sodium 135 creatinine 0.7 May 28, 2024: White count 5.5 hemoglobin 12.9 platelets 280 sodium 142 potassium 4.2 creatinine 0.9 Assessment plan: -Preoperative Diagnosis: Spondylolisthesis L4-5, L3-4, spinal stenosis L3-4 and severe stenosis L4-5, low back pain, lower extremity colopathy, degenerative disc disease, spondylolysis, facet arthrosis Postoperative Diagnosis: Same Procedure: Laminectomy and decompression L3-4 L4-[address] navigation aided Minimally invasive Posterior lateral decompression and facet and pars fusion L3-4 L4-5 Minimally invasive Transforaminal lumbar interbody fusion for a 360 fusion L3-4 L4-5 Discectomy for decompression L3-4 L4-5 Placement of interbody graft L3-4 L4-5 Use of computer navigation for fusion and placement of hardware Local autogenous bone grafting Aspiration of bone marrow from the vertebral body pedicle of L4 Use of bone graft extenders Surgeon: Dr. Cee -Primary osteoarthritis multiple joints Pain medication as needed -Acute postprocedure blood loss anemia expected from surgery Add ferrous sulfate -Hyperlipidemia Zocor 20 mg nightly -Hypothyroid Synthroid 175 mcg a day -Depression anxiety Zoloft 100 mg a day Continue current medication treatment plan. PT OT. Add ferrous sulfate. Thank you Dr. Cee Past Medical History Past Medical History: Hyperlipidemia, Thyroid Disorder History of Any Multi-Drug Resistant Organisms: None Reported Past Surgical History: Appendectomy, Section, Orthopedic Surgery Additional Past Surgical History / Comment(s): RT ROTATOR CUFF REPAIR. COLONOSCOPY. BILAT CTR Past Anesthesia/Blood Transfusion Reactions: No Reported Reaction Past Psychological History: Anxiety, Depression Smoking Status: Never smoker Past Alcohol Use History: None Reported Past Drug Use History: None Reported
[2024-06-07] MEDS: ACETAMINOPHEN TAB 325 MG TAB PO PRN (20:50)
--- NOTE | 2024-06-08 08:35 | P.PN ---
Progress Note - Text Progress Note Date: 06/08/24 Orthopedic Spine History of present illness: Patient is a pleasant 63-year-old female who is seen and examined at the bedside following posterior lateral decompression and fusion performed Tuesday. Patient states they are doing better post operatively. She was having significant difficulty with pain control this morning which has improved with medication. Since that time her pain is better controlled. She was able to work with physical therapy today to transfer to a bedside chair. Her pain is most significant at her lumbar spine. She is not currently complaining of any lower extremity pain. Currently does not complain of nausea, vomiting, fever, or chills. Patient states pain has been adequately controlled currently. She is requiring oral and IV medications for pain control. Patient is eating without difficulty. Blandon catheter was discontinued. She is voiding without difficulty. Patient is currently being seen by medicine for postoperative medical management. Physical Exam Lumbar Fusion: Status post surgical day number 2 Patient is awake, alert, and oriented 3 Vital signs stable Good chest excursion with deep inspiration and expiration Abdomen soft nontender Dorsiflexion, plantarflexion, and extensor hallucis longus positive sustained bilaterally No signs or symptoms of DVT; no calf pain; pneumatic cuffs intact bilateral lower extremities Optifoam dressings are clean, dry, and intact over the lumbar spine and right iliac crest; no erythema, purulence, or signs of infection Neurovascularly intact bilaterally lower extremities Assessment: Status post L3-4 and L4-5 minimally invasive posterior lateral decompression and fusion with transforaminal lumbar interbody fusion Low back pain L3-4 and L4-5 spondylolisthesis L3-4 spinal stenosis L4-5 severe spinal stenosis Lumbar degenerative disc disease Lumbar spondylolysis Lumbar facet arthrosis Lower extremity radiculopathy Hyperlipidemia Hypothyroidism Plan: 1. Ambulate as tolerated; work with Physical Therapy to increase mobilization 2. Continue pain control with IV and oral medications; will plan to begin weaning the patient off of IV narcotic medication in anticipation for discharge home in the next 1-2 days MAPS has been reviewed today, 06/08/2024, with an Overall Overdose Risk Score of 000. An "Opiod Start Talking" Form has been signed and placed in the patient's chart. A prescription has been written for [place] 10 mg / 325 mg, take 1 tab, every 6 hours, as needed for acute pain, dispense #28. Prescriptions are also written for cyclobenzaprine 10 mg, 1 tab, 3 times daily, as needed for muscle spasm, dispense #60 and Senokot-S, 1 tab, twice daily, as needed for constipation, dispense #60. Prescriptions are sent to the patient's regular pharmacy per request of the patient. 3. Dressings to remain intact with Optifoam; patient may shower with dressings intact 4. Medical management can continue to manage patient for patient's other medical diagnoses 5. We will continue to follow the patient closely; patient has had some difficulty with pain control. We will continue to manage the patient's pain. She will most likely need another 1-2 days in the hospital postoperatively. 6. Patient can follow-up with Cristofer Fuentes PA-C or Dr. Emanuel Cee at [facility] in 2-3 weeks following discharge
[2024-06-08] MEDS: FERROUS SULFATE 325 MG TAB PO SCH (11:30)
--- NOTE | 2024-06-08 16:38 | P.PN ---
Progress Note - Text Progress Note Date: 06/08/24 - Chief Complaint Lumbar surgery - History of Present Illness Pleasant 63-year-old patient, follows with Dr. Za Russo. Chronic stable medical condition include hyperlipidemia, hypothyroid, depression anxiety. Acute osteoarthritis of multiple including the cervical spine. Patient trouble with low back pain for several years. Including pain going down both legs. No involvement of bladder or bowels. Patient today underwent lumbar surgery by Dr. Cee. Postoperatively laying in bed. Pain is present. No nausea vomiting. Denies any cardiac history. June 07: I came to see patient this morning. Physical therapy was done to get her to up to a recliner. Having significant back pain. Blandon catheter in place. Decreased appetite. June 08: Patient still having significant lower back pain. Specially with movement. Decreased appetite. Blandon catheter has been discontinued. Very small amount of flatus. Daughter at the bedside. Encourage oral intake. [Patient documented 102 yesterday evening.-Unclear if reactive lungs with this patient [ Active Medications Acetaminophen (Acetaminophen Tab 325 Mg Tab) 650 mg PO Q6HR PRN PRN Reason: Mild Pain (Scale 1 to 3) Last Admin: 06/07/24 20:50 Dose: 650 mg Hydrocodone Bitart/Acetaminophen (Hydrocodone/Apap 10-325mg 1 Each Tab) 1 each PO Q4H PRN PRN Reason: Moderate Pain (Scale 4 to 6) Last Admin: 06/08/24 08:11 Dose: 1 each Hydrocodone Bitart/Acetaminophen (Hydrocodone/Apap 10-325mg 1 Each Tab) 2 each PO Q4H PRN PRN Reason: Severe Pain (Scale 7 to 10) Atorvastatin Calcium (Atorvastatin 10 Mg Tab) 10 mg PO HS [facility] Last Admin: 06/07/24 20:50 Dose: 10 mg Benzocaine/Menthol (Benzocaine/Menthol Lozeng 1 Each Lozenge) 1 each MUCOUS MEM Q4HR PRN PRN Reason: Sore Throat Cyclobenzaprine HCl (Cyclobenzaprine 10 Mg Tab) 10 mg PO TID PRN PRN Reason: Muscle Spasm Last Admin: 06/08/24 06:46 Dose: 10 mg Ferrous Sulfate (Ferrous Sulfate 325 Mg Tab) 325 mg PO W/LUNCH [facility] Last Admin: 06/08/24 11:30 Dose: 325 mg Hydromorphone HCl (Hydromorphone 1 Mg/Ml 1 Ml Syringe) 1 mg IVP Q4HR PRN PRN Reason: Severe Pain (Scale 7 to 10) Last Admin: 06/08/24 11:31 Dose: 1 mg Lactated Ringer's (Lactated Ringers) 1,000 mls @ 20 mls/hr IV .Q24H [facility] Stop: 07/06/24 06:19 Last Admin: 06/08/24 07:44 Dose: Not Given Levothyroxine Sodium (Levothyroxine 88 Mcg Tab) 176 mcg PO 0630 [facility] Last Admin: 06/08/24 06:46 Dose: 176 mcg Lidocaine HCl (Lidocaine 1% (10mg/Ml) For Iv Start) 0.1 ml INTRADERMA PER PROTOCOL PRN PRN Reason: IV Start Stop: 07/06/24 06:19 Ondansetron HCl (Ondansetron 4 Mg/2 Ml Vial) 4 mg IVP Q8HR PRN PRN Reason: Nausea And Vomiting Last Admin: 06/07/24 03:15 Dose: 4 mg Senna/Docusate Sodium (Sennosides-Docusate Sodium 1 Each Tab) 1 each PO DAILY [facility] Last Admin: 06/08/24 08:09 Dose: 1 each Sertraline HCl (Sertraline 100 Mg Tab) 100 mg PO DAILY [facility] Last Admin: 06/08/24 08:09 Dose: 100 mg Trazodone HCl (Trazodone Hcl 50 Mg Tab) 50 mg PO HS [facility] Last Admin: 06/07/24 20:50 Dose: 50 mg Social history: . Does not smoke or drink alcohol. Physical examination: VITAL SIGNS: 99.2, 92, 18, 150/76, 96% room air GENERAL: BMI 27.9, laying in bed, uncomfortable EYES: Pupils equal. Conjunctiva nagi l. HEENT: External appearance of nose and ears normal, oral cavity grossly normal. NECK: JVD not raised; masses not palpable. HEART: First and second heart sounds are normal; no edema. LUNGS: Respiratory rate normal; clear to auscultation. ABDOMEN: Soft, nontender, liver spleen not palpable, no masses palpable. Blandon catheter PSYCH: Alert and oriented x3; mood and affect with anxious MUSCULOSKELETAL:No Clubbing/cyanosis;muscles-grossly intact. Dressing over the surgical site INVESTIGATIONS, reviewed in the clinical context: June 07: White count 12.7 hemoglobin 10.5 platelets 227 sodium 135 creatinine 0.7 May 28, 2024: White count 5.5 hemoglobin 12.9 platelets 280 sodium 142 potassium 4.2 creatinine 0.9 Assessment plan: -Preoperative Diagnosis: Spondylolisthesis L4-5, L3-4, spinal stenosis L3-4 and severe stenosis L4-5, low back pain, lower extremity colopathy, degenerative disc disease, spondylolysis, facet arthrosis Postoperative Diagnosis: Same Procedure: Laminectomy and decompression L3-4 L4-[address] navigation aided Minimally invasive Posterior lateral decompression and facet and pars fusion L3-4 L4-5 Minimally invasive Transforaminal lumbar interbody fusion for a 360 fusion L3-4 L4-5 Discectomy for decompression L3-4 L4-5 Placement of interbody graft L3-4 L4-5 Use of computer navigation for fusion and placement of hardware Local autogenous bone grafting Aspiration of bone marrow from the vertebral body pedicle of L4 Use of bone graft extenders Surgeon: Dr. Cee Patient remains a significant pain. Activity per Ortho -Primary osteoarthritis multiple joints Pain medication as needed -Acute postprocedure blood loss anemia expected from surgery Add ferrous sulfate -Hyperlipidemia Zocor 20 mg nightly -Hypothyroid Synthroid 175 mcg a day -Depression anxiety Zoloft 100 mg a day Discussed with patient daughter at the bedside. Activity as tolerated. Thank you Dr. Cee Past Medical History Past Medical History: Hyperlipidemia, Thyroid Disorder History of Any Multi-Drug Resistant Organisms: None Reported Past Surgical History: Appendectomy, Section, Orthopedic Surgery Additional Past Surgical History / Comment(s): RT ROTATOR CUFF REPAIR. COLONOSCOPY. BILAT CTR Past Anesthesia/Blood Transfusion Reactions: No Reported Reaction Past Psychological History: Anxiety, Depression Smoking Status: Never smoker Past Alcohol Use History: None Reported Past Drug Use History: None Reported
[2024-06-08] MEDS: HYDROcodone/APAP 10-325MG 1 EACH TAB PO PRN (19:50)
[2024-06-09 03:35] LABS: Basophils % (A) 0 %; Eosinophils # (A) 0.1 k/uL (0-0.7); Eosinophils % (A) 1 %; HCT 29.8 % (34.0-46.0); HGB 9.7 gm/dL (11.4-16.0); Lymphocytes # (A) 1.1 k/uL (1.0-4.8); Lymphocytes % (A) 10 %; MCH 29.8 pg (25.0-35.0); MCHC 32.6 g/dL (31.0-37.0); MCV 91.3 fL (80.0-100.0); Mean Platelet Volume 7.7; Monocytes # (A) 0.6 k/uL (0-1.0); Monocytes % (A) 6 %; Neutrophils # (A) 8.6 k/uL (1.3-7.7); Neutrophils % (A) 81 %; Platelet Count 220 k/uL (150-450); RBC 3.27 m/uL (3.80-5.40); RDW 13.1 % (11.5-15.5); WBC 10.6 k/uL (3.8-10.6)
--- NOTE | 2024-06-09 09:41 | P.PN ---
Subjective Progress Note Date: 06/09/24 Principal diagnosis: Status post L3-4 and L4-5 minimally invasive posterior lateral decompression and fusion with transforaminal lumbar interbody fusion Mary Kay is a 63 y/o female who is post op posterior lateral decompression and fusion on 06/06/2024. Patient states she was having significant difficulty with pain control still. She is able to work with physical therapy but it's very difficult to get out of bed. Her pain is most significant at her lumbar spine. She is not currently complaining of any lower extremity pain. Currently does not complain of nausea, vomiting, fever, or chills. Patient states pain has been not adequately controlled currently. She is requiring oral and IV medications for pain control. Patient is eating without difficulty. Blandon catheter was discontinued. She is voiding without difficulty. Objective - Vital Signs Vital signs: Vital Signs Temp 98.7 F 06/09/24 01:09 Pulse 82 06/09/24 01:09 Resp 17 06/09/24 01:09 BP 143/69 06/09/24 01:09 Pulse Ox 93 L 06/09/24 01:09 FiO2 Intake & Output 06/08/24 06/09/24 06/09/24 18:59 06:59 18:59 Other: # Voids 6 1 - Exam Patient is awake, alert, and oriented 3 Vital signs stable Good chest excursion with deep inspiration and expiration Abdomen soft nontender Dorsiflexion, plantarflexion, and extensor hallucis longus positive sustained bilaterally No signs or symptoms of DVT; no calf pain; pneumatic cuffs intact bilateral lower extremities Optifoam dressings were changed today. There are two blisters to the superior aspect of the incision. No erythema, purulence, or signs of infection Neurovascularly intact bilaterally lower extremities - Labs CBC & Chem 7: 06/09/24 03:12 06/07/24 03:21 Labs: Abnormal Lab Results - Last 24 Hours (Table) 06/09/24 Range/Units 03:12 RBC 3.27 L (3.80-5.40) m/uL Hgb 9.7 L (11.4-16.0) gm/dL Hct 29.8 L (34.0-46.0) % Neutrophils # 8.6 H (1.3-7.7) k/uL Assessment and Plan (1) Status post lumbar spinal fusion Current Visit: Yes Status: Acute Code(s): Z98.1 - ARTHRODESIS STATUS SNOMED Code(s): 75933143070758 Plan: 1. Continue pain control, will increase to Percocet today. Wean use of Dilaudid. 2. Continue physical therapy and ambulation 3. Anticipate discharge home when her pain is better controlled
[2024-06-09] MEDS: oxyCODONE-APAP 5-325MG 1 EACH TAB PO PRN (14:22)
--- NOTE | 2024-06-09 20:35 | P.PN ---
Progress Note - Text Progress Note Date: 06/09/24 - Chief Complaint Lumbar surgery - History of Present Illness Pleasant 63-year-old patient, follows with Dr. Za Russo. Chronic stable medical condition include hyperlipidemia, hypothyroid, depression anxiety. Acute osteoarthritis of multiple including the cervical spine. Patient trouble with low back pain for several years. Including pain going down both legs. No involvement of bladder or bowels. Patient today underwent lumbar surgery by Dr. Cee. Postoperatively laying in bed. Pain is present. No nausea vomiting. Denies any cardiac history. June 07: I came to see patient this morning. Physical therapy was done to get her to up to a recliner. Having significant back pain. Blandon catheter in place. Decreased appetite. June 08: Patient still having significant lower back pain. Specially with movement. Decreased appetite. Blandon catheter has been discontinued. Very small amount of flatus. Daughter at the bedside. Encourage oral intake. [Patient documented 102 yesterday evening.-Unclear if reactive lungs with this patient [ June 09: Back pain actually better. Was out of bed. Did ambulate. Making good urine. Passed flatus. Getting a laxative. Eating fair. Will give IV Ferrlecit couple of doses Active Medications Acetaminophen (Acetaminophen Tab 325 Mg Tab) 650 mg PO Q6HR PRN PRN Reason: Mild Pain (Scale 1 to 3) Last Admin: 06/07/24 20:50 Dose: 650 mg Hydrocodone Bitart/Acetaminophen (Hydrocodone/Apap 10-325mg 1 Each Tab) 1 each PO Q4H PRN PRN Reason: Moderate Pain (Scale 4 to 6) Last Admin: 06/08/24 08:11 Dose: 1 each Atorvastatin Calcium (Atorvastatin 10 Mg Tab) 10 mg PO HS TERI Last Admin: 06/08/24 21:06 Dose: 10 mg Benzocaine/Menthol (Benzocaine/Menthol Lozeng 1 Each Lozenge) 1 each MUCOUS MEM Q4HR PRN PRN Reason: Sore Throat Cyclobenzaprine HCl (Cyclobenzaprine 10 Mg Tab) 10 mg PO TID PRN PRN Reason: Muscle Spasm Last Admin: 06/09/24 06:06 Dose: 10 mg Ferrous Sulfate (Ferrous Sulfate 325 Mg Tab) 325 mg PO W/LUNCH TERI Last Admin: 06/09/24 12:12 Dose: 325 mg Hydromorphone HCl (Hydromorphone 1 Mg/Ml 1 Ml Syringe) 1 mg IVP Q4HR PRN PRN Reason: Severe Pain (Scale 7 to 10) Last Admin: 06/09/24 06:01 Dose: 1 mg Lactated Ringer's (Lactated Ringers) 1,000 mls @ 20 mls/hr IV .Q24H [facility] Stop: 07/06/24 06:19 Last Admin: 06/09/24 07:28 Dose: Not Given Ferric Sodium Gluconate 125 mg (/ Sodium Chloride) 110 mls @ 100 mls/hr IVPB DAILY [facility] Stop: 06/10/24 10:05 Levothyroxine Sodium (Levothyroxine 88 Mcg Tab) 176 mcg PO 0630 [facility] Last Admin: 06/09/24 06:05 Dose: 176 mcg Lidocaine HCl (Lidocaine 1% (10mg/Ml) For Iv Start) 0.1 ml INTRADERMA PER PROTOCOL PRN PRN Reason: IV Start Stop: 07/06/24 06:19 Ondansetron HCl (Ondansetron 4 Mg/2 Ml Vial) 4 mg IVP Q8HR PRN PRN Reason: Nausea And Vomiting Last Admin: 06/07/24 03:15 Dose: 4 mg Oxycodone/Acetaminophen (Oxycodone-Apap 5-325mg 1 Each Tab) 1 each PO Q4HR PRN PRN Reason: Severe Pain (Scale 7 to 10) Last Admin: 06/09/24 17:56 Dose: 1 each Senna/Docusate Sodium (Sennosides-Docusate Sodium 1 Each Tab) 1 each PO DAILY [facility] Last Admin: 06/09/24 08:31 Dose: 1 each Sertraline HCl (Sertraline 100 Mg Tab) 100 mg PO DAILY [facility] Last Admin: 06/09/24 08:31 Dose: 100 mg Trazodone HCl (Trazodone Hcl 50 Mg Tab) 50 mg PO HS [facility] Last Admin: 06/08/24 21:06 Dose: 50 mg Social history: . Does not smoke or drink alcohol. Physical examination: VITAL SIGNS: 98.7, 75, 18, 116 x 71, 96% room air GENERAL: BMI 27.9, resting bed, appears more comfortable EYES: Pupils equal. Conjunctiva nagi l. HEENT: External appearance of nose and ears normal, oral cavity grossly normal. NECK: JVD not raised; masses not palpable. HEART: First and second heart sounds are normal; no edema. LUNGS: Respiratory rate normal; clear to auscultation. ABDOMEN: Soft, nontender, liver spleen not palpable, no masses palpable. Blandon catheter discontinued PSYCH: Alert and oriented x3; mood and affect with anxious MUSCULOSKELETAL:No Clubbing/cyanosis;muscles-grossly intact. Dressing over the surgical site INVESTIGATIONS, reviewed in the clinical context: June 09: White count 10.6 hemoglobin 9.7 platelets 220 June 07: White count 12.7 hemoglobin 10.5 platelets 227 sodium 135 creatinine 0.7 May 28, 2024: White count 5.5 hemoglobin 12.9 platelets 280 sodium 142 potassium 4.2 creatinine 0.9 Assessment plan: -Preoperative Diagnosis: Spondylolisthesis L4-5, L3-4, spinal stenosis L3-4 and severe stenosis L4-5, low back pain, lower extremity colopathy, degenerative disc disease, spondylolysis, facet arthrosis Postoperative Diagnosis: Same Procedure: Laminectomy and decompression L3-4 L4-[address] navigation aided Minimally invasive Posterior lateral decompression and facet and pars fusion L3-4 L4-5 Minimally invasive Transforaminal lumbar interbody fusion for a 360 fusion L3-4 L4-5 Discectomy for decompression L3-4 L4-5 Placement of interbody graft L3-4 L4-5 Use of computer navigation for fusion and placement of hardware Local autogenous bone grafting Aspiration of bone marrow from the vertebral body pedicle of L4 Use of bone graft extenders Surgeon: Dr. Cee Patient remains a significant pain. Activity per Ortho -Primary osteoarthritis multiple joints Pain medication as needed -Acute postprocedure blood loss anemia expected from surgery Add ferrous sulfate IV Ferrlecit -Hyperlipidemia Zocor 20 mg nightly -Hypothyroid Synthroid 175 mcg a day -Depression anxiety Zoloft 100 mg a day Doing much better. IV Ferrlecit. Laxative Thank you Dr. Cee Past Medical History Past Medical History: Hyperlipidemia, Thyroid Disorder History of Any Multi-Drug Resistant Organisms: None Reported Past Surgical History: Appendectomy, Section, Orthopedic Surgery Additional Past Surgical History / Comment(s): RT ROTATOR CUFF REPAIR. COLONOSCOPY. BILAT CTR Past Anesthesia/Blood Transfusion Reactions: No Reported Reaction Past Psychological History: Anxiety, Depression Smoking Status: Never smoker Past Alcohol Use History: None Reported Past Drug Use History: None Reported
[2024-06-10] MEDS: SODIUM FERRIC GLUCONAT-SUCROSE 125 MG in SODIUM CHLORIDE 0.9% 100 ML IVPB SCH (00:16)
--- NOTE | 2024-06-10 10:55 | P.PN ---
Subjective Progress Note Date: 06/10/24 Principal diagnosis: Status post L3-4 and L4-5 minimally invasive posterior lateral decompression and fusion with transforaminal lumbar interbody fusion Mary Kay is a 63 y/o female who is post op posterior lateral decompression and fusion on 06/06/2024. Patient states her pain is a little better today. She is able to work with physical therapy but it's very difficult to get out of bed. Her pain is most significant at her lumbar spine. She is not currently complaining of any lower extremity pain. Currently does not complain of nausea, vomiting, fever, or chills. Patient states pain has been not adequately controlled currently. She is requiring oral and IV medications for pain control. Patient is eating without difficulty. She is voiding without difficulty but is trying to have a bowel movement today. Objective - Vital Signs Vital signs: Vital Signs Temp 98.1 F 06/10/24 07:02 Pulse 76 06/10/24 07:02 Resp 18 06/10/24 07:02 BP 117/69 06/10/24 07:02 Pulse Ox 96 06/10/24 07:02 FiO2 Intake & Output 06/09/24 06/10/24 06/10/24 18:59 06:59 18:59 Other: Voiding Method Toilet # Voids 1 - Exam Patient is awake, alert, and oriented 3 Vital signs stable Good chest excursion with deep inspiration and expiration Abdomen soft nontender Dorsiflexion, plantarflexion, and extensor hallucis longus positive sustained bilaterally No signs or symptoms of DVT; no calf pain; pneumatic cuffs intact bilateral lower extremities Optifoam dressings are clean, dry, and intact. There are two blisters to the superior aspect of the incision. No erythema, purulence, or signs of infection Neurovascularly intact bilaterally lower extremities - Labs CBC & Chem 7: 06/09/24 03:12 06/07/24 03:21 Assessment and Plan (1) Status post lumbar spinal fusion Current Visit: Yes Status: Acute Code(s): Z98.1 - ARTHRODESIS STATUS SNOMED Code(s): 20628146365888 Plan: 1. Continue pain control with Percocet. Wean use of Dilaudid. 2. Continue physical therapy and ambulation 3. Anticipate discharge home likely tomorrow.
[2024-06-10] MEDS: SIMETHICONE 80 MG CHEWABLE PO PRN (12:03)
--- NOTE | 2024-06-10 18:26 | P.PN ---
Progress Note - Text Progress Note Date: 06/10/24 - Chief Complaint Lumbar surgery - History of Present Illness Pleasant 63-year-old patient, follows with Dr. Za Russo. Chronic stable medical condition include hyperlipidemia, hypothyroid, depression anxiety. Acute osteoarthritis of multiple including the cervical spine. Patient trouble with low back pain for several years. Including pain going down both legs. No involvement of bladder or bowels. Patient today underwent lumbar surgery by Dr. Cee. Postoperatively laying in bed. Pain is present. No nausea vomiting. Denies any cardiac history. June 07: I came to see patient this morning. Physical therapy was done to get her to up to a recliner. Having significant back pain. Blandon catheter in place. Decreased appetite. June 08: Patient still having significant lower back pain. Specially with movement. Decreased appetite. Blandon catheter has been discontinued. Very small amount of flatus. Daughter at the bedside. Encourage oral intake. [Patient documented 102 yesterday evening.-Unclear if reactive lungs with this patient [ June 09: Back pain actually better. Was out of bed. Did ambulate. Making good urine. Passed flatus. Getting a laxative. Eating fair. Will give IV Ferrlecit couple of doses June 10: Doing much better. Pain is better. Did walk in the hallway. No bowel movement. Patient had declined the IV Ferrlecit today. After explained the reason she decided to proceed with the same. Active Medications Acetaminophen (Acetaminophen Tab 325 Mg Tab) 650 mg PO Q6HR PRN PRN Reason: Mild Pain (Scale 1 to 3) Last Admin: 06/07/24 20:50 Dose: 650 mg Hydrocodone Bitart/Acetaminophen (Hydrocodone/Apap 10-325mg 1 Each Tab) 1 each PO Q4H PRN PRN Reason: Moderate Pain (Scale 4 to 6) Last Admin: 06/08/24 08:11 Dose: 1 each Atorvastatin Calcium (Atorvastatin 10 Mg Tab) 10 mg PO HS TERI Last Admin: 06/09/24 20:30 Dose: 10 mg Benzocaine/Menthol (Benzocaine/Menthol Lozeng 1 Each Lozenge) 1 each MUCOUS MEM Q4HR PRN PRN Reason: Sore Throat Cyclobenzaprine HCl (Cyclobenzaprine 10 Mg Tab) 10 mg PO TID PRN PRN Reason: Muscle Spasm Last Admin: 06/10/24 06:02 Dose: 10 mg Ferrous Sulfate (Ferrous Sulfate 325 Mg Tab) 325 mg PO W/LUNCH [facility] Last Admin: 06/10/24 11:41 Dose: Not Given Hydromorphone HCl (Hydromorphone 1 Mg/Ml 1 Ml Syringe) 1 mg IVP Q4HR PRN PRN Reason: Severe Pain (Scale 7 to 10) Last Admin: 06/10/24 13:15 Dose: 1 mg Lactated Ringer's (Lactated Ringers) 1,000 mls @ 20 mls/hr IV .Q24H [facility] Stop: 07/06/24 06:19 Last Admin: 06/10/24 07:24 Dose: Not Given Levothyroxine Sodium (Levothyroxine 88 Mcg Tab) 176 mcg PO 0630 [facility] Last Admin: 06/10/24 06:02 Dose: 176 mcg Lidocaine HCl (Lidocaine 1% (10mg/Ml) For Iv Start) 0.1 ml INTRADERMA PER PROTOCOL PRN PRN Reason: IV Start Stop: 07/06/24 06:19 Ondansetron HCl (Ondansetron 4 Mg/2 Ml Vial) 4 mg IVP Q8HR PRN PRN Reason: Nausea And Vomiting Last Admin: 06/07/24 03:15 Dose: 4 mg Oxycodone/Acetaminophen (Oxycodone-Apap 5-325mg 1 Each Tab) 1 each PO Q4HR PRN PRN Reason: Severe Pain (Scale 7 to 10) Last Admin: 06/10/24 16:33 Dose: 1 each Senna/Docusate Sodium (Sennosides-Docusate Sodium 1 Each Tab) 1 each PO DAILY [facility] Last Admin: 06/10/24 07:38 Dose: 1 each Sertraline HCl (Sertraline 100 Mg Tab) 100 mg PO DAILY [facility] Last Admin: 06/10/24 07:38 Dose: 100 mg Simethicone (Simethicone 80 Mg Chewable) 80 mg PO QID PRN PRN Reason: Dyspepsia Last Admin: 06/10/24 12:03 Dose: 80 mg Trazodone HCl (Trazodone Hcl 50 Mg Tab) 50 mg PO HS [facility] Last Admin: 06/09/24 20:30 Dose: 50 mg Social history: . Does not smoke or drink alcohol. Physical examination: VITAL SIGNS: 98.1, 76, 18, 117 x 69, 96% room air GENERAL: BMI 27.9, resting bed, comfortable EYES: Pupils equal. Conjunctiva nagi l. HEENT: External appearance of nose and ears normal, oral cavity grossly normal. NECK: JVD not raised; masses not palpable. HEART: First and second heart sounds are normal; no edema. LUNGS: Respiratory rate normal; clear to auscultation. ABDOMEN: Soft, nontender, liver spleen not palpable, no masses palpable. Blandon catheter discontinued PSYCH: Alert and oriented x3; mood and affect with anxious MUSCULOSKELETAL:No Clubbing/cyanosis;muscles-grossly intact. Dressing over the surgical site INVESTIGATIONS, reviewed in the clinical context: June 09: White count 10.6 hemoglobin 9.7 platelets 220 June 07: White count 12.7 hemoglobin 10.5 platelets 227 sodium 135 creatinine 0.7 May 28, 2024: White count 5.5 hemoglobin 12.9 platelets 280 sodium 142 potassium 4.2 creatinine 0.9 Assessment plan: -Preoperative Diagnosis: Spondylolisthesis L4-5, L3-4, spinal stenosis L3-4 and severe stenosis L4-5, low back pain, lower extremity colopathy, degenerative disc disease, spondylolysis, facet arthrosis Postoperative Diagnosis: Same Procedure: Laminectomy and decompression L3-4 L4-[address] navigation aided Minimally invasive Posterior lateral decompression and facet and pars fusion L3-4 L4-5 Minimally invasive Transforaminal lumbar interbody fusion for a 360 fusion L3-4 L4-5 Discectomy for decompression L3-4 L4-5 Placement of interbody graft L3-4 L4-5 Use of computer navigation for fusion and placement of hardware Local autogenous bone grafting Aspiration of bone marrow from the vertebral body pedicle of L4 Use of bone graft extenders Surgeon: Dr. Cee Patient remains a significant pain. Activity per Ortho -Primary osteoarthritis multiple joints Pain medication as needed -Acute postprocedure blood loss anemia expected from surgery Add ferrous sulfate IV Ferrlecit -Hyperlipidemia Zocor 20 mg nightly -Hypothyroid Synthroid 175 mcg a day -Depression anxiety Zoloft 100 mg a day Patient taking of Aricept. Laxative. Activity improved Thank you Dr. Cee Past Medical History Past Medical History: Hyperlipidemia, Thyroid Disorder History of Any Multi-Drug Resistant Organisms: None Reported Past Surgical History: Appendectomy, Section, Orthopedic Surgery Additional Past Surgical History / Comment(s): RT ROTATOR CUFF REPAIR. COLONOSCOPY. BILAT CTR Past Anesthesia/Blood Transfusion Reactions: No Reported Reaction Past Psychological History: Anxiety, Depression Smoking Status: Never smoker Past Alcohol Use History: None Reported Past Drug Use History: None Reported
--- NOTE | 2024-06-11 08:37 | P.DS ---
Providers Date of admission: 06/07/24 14:21 Expected date of discharge: 06/11/24 Attending physician: Krystle Cee Consults: 06/06/24 17:18 Consult Physician Routine Consulting Provider: Paras Dang Consult Reason/Comments: Medical management Do you want consulting provider notified?: Yes Primary care physician: Ashley Russo - Discharge Diagnosis(es) (1) Status post lumbar spinal fusion Current Visit: Yes Status: Acute Hospital Course: The patient is a 63 -year-old female who is status post L3-4 and L4-5 minimally invasive posterior lateral decompression and fusion with transforaminal lumbar interbody fusion on 06/06/[address] Cee. Patient has known history of low back pain and presented to discuss options. After discussion and consideration, patient elected to proceed with a laminectomy and decompression. The patient was seen preoperatively and medically cleared for surgery by her primary care physician. The procedure was performed without complications or sequelae. The patient was seen and evaluated at bedside today and denies any new complaints. Pain is reasonably controlled. Dressing is clean dry and intact. There are 2 blisters on the superior aspect of the incisions, likely due to tape reaction. Her abdomen is soft and nontender. Dorsiflexion, plantarflexion, extensor hallucis longus positive sustaining bilaterally. Calves are soft and nontender. The patient has full foot and ankle motion without difficulty. Patient's bilateral lower extremities are neurovascular intact. Patient is orthopedically stable for discharge to home today. Pertinent Studies: Laboratory Tests 06/09/24 03:12 WBC 10.6 RBC 3.27 L Hgb 9.7 L Hct 29.8 L Patient Condition at Discharge: Stable Plan - Discharge Summary Discharge Rx Participant: No New Discharge Prescriptions: New Cyclobenzaprine [Flexeril] 10 mg PO TID PRN #60 tab PRN Reason: Muscle Spasm HYDROcodone/APAP 10-325MG [[place] 10] 1 each PO Q6H PRN #28 tab PRN Reason: Pain Sennosides-Docusate Sodium [Senokot-S] 1 tab PO BID PRN #60 tablet PRN Reason: Constipation No Action traZODone HCL [Desyrel] 50 mg PO HS Simvastatin [Zocor] 20 mg PO HS Sertraline [Zoloft] 100 mg PO DAILY Meloxicam [Mobic] 15 mg PO DAILY Levothyroxine Sodium [Synthroid] 175 mcg PO DAILY Discharge Medication List Levothyroxine Sodium [Synthroid] 175 mcg PO DAILY 08/02/23 [History] Meloxicam [Mobic] 15 mg PO DAILY 08/02/23 [History] Sertraline [Zoloft] 100 mg PO DAILY 08/02/23 [History] Simvastatin [Zocor] 20 mg PO HS 08/02/23 [History] traZODone HCL [Desyrel] 50 mg PO HS 08/02/23 [History] Cyclobenzaprine [Flexeril] 10 mg PO TID PRN #60 tab 06/08/24 [Rx] HYDROcodone/APAP 10-325MG [[place] 10] 1 each PO Q6H PRN #28 tab 06/08/24 [Rx] Sennosides-Docusate Sodium [Senokot-S] 1 tab PO BID PRN #60 tablet 06/08/24 [Rx] Follow up Appointment(s)/Referral(s): Cristofer Fuentes, SAMRA [PHYSICIAN REPEAT CHIEF] - 2 Weeks (Patient may follow-up with Cristofer Fuentes PA-C or Dr. Emanuel Cee at [facility] in 2-3 weeks following discharge. ) Activity/Diet/Wound Care/Special Instructions: 1. Patient may shower with Optifoam dressing intact. 2. Patient may remove Optifoam dressing in 3 days and shower without a dressing at that time. 3. Patient should refrain from driving until at least after their first follow- up appointment in the office. 4. Patient should avoid excessive bending, twisting, lifting; avoid overhead lifting; no lifting greater than 10 pounds 5. Take medications as prescribed 6. Patient should avoid anti-inflammatory medications over the next 6 weeks postoperatively 7. Do not soak in tub Discharge Disposition: HOME SELF-CARE
[2024-06-11 08:56] VITALS: BP 127/76; PULSE 73; RESP 16; TEMP 98.7
--- NOTE | 2024-06-11 19:51 | P.PN ---
Progress Note - Text Progress Note Date: 06/11/24 - Chief Complaint Lumbar surgery - History of Present Illness Pleasant 63-year-old patient, follows with Dr. Za Russo. Chronic stable medical condition include hyperlipidemia, hypothyroid, depression anxiety. Acute osteoarthritis of multiple including the cervical spine. Patient trouble with low back pain for several years. Including pain going down both legs. No involvement of bladder or bowels. Patient today underwent lumbar surgery by Dr. Cee. Postoperatively laying in bed. Pain is present. No nausea vomiting. Denies any cardiac history. June 07: I came to see patient this morning. Physical therapy was done to get her to up to a recliner. Having significant back pain. Blandon catheter in place. Decreased appetite. June 08: Patient still having significant lower back pain. Specially with movement. Decreased appetite. Blandon catheter has been discontinued. Very small amount of flatus. Daughter at the bedside. Encourage oral intake. [Patient documented 102 yesterday evening.-Unclear if reactive lungs with this patient [ June 09: Back pain actually better. Was out of bed. Did ambulate. Making good urine. Passed flatus. Getting a laxative. Eating fair. Will give IV Ferrlecit couple of doses June 10: Doing much better. Pain is better. Did walk in the hallway. No bowel movement. Patient had declined the IV Ferrlecit today. After explained the reason she decided to proceed with the same. June 11: Had a bowel movement. Doing much better. Walking better. Questions answered. Social history: . Does not smoke or drink alcohol. Physical examination: VITAL SIGNS: 98.7, 73, 16, 127 x 76, 94% room air GENERAL: BMI 27.9, comfortable EYES: Pupils equal. Conjunctiva nagi l. HEENT: External appearance of nose and ears normal, oral cavity grossly normal. NECK: JVD not raised; masses not palpable. HEART: First and second heart sounds are normal; no edema. LUNGS: Respiratory rate normal; clear to auscultation. ABDOMEN: Soft, nontender, liver spleen not palpable, no masses palpable. Blandon catheter discontinued PSYCH: Alert and oriented x3; mood and affect with anxious MUSCULOSKELETAL:No Clubbing/cyanosis;muscles-grossly intact. Dressing over the surgical site INVESTIGATIONS, reviewed in the clinical context: June 09: White count 10.6 hemoglobin 9.7 platelets 220 June 07: White count 12.7 hemoglobin 10.5 platelets 227 sodium 135 creatinine 0.7 May 28, 2024: White count 5.5 hemoglobin 12.9 platelets 280 sodium 142 potassium 4.2 creatinine 0.9 Assessment plan: -Preoperative Diagnosis: Spondylolisthesis L4-5, L3-4, spinal stenosis L3-4 and severe stenosis L4-5, low back pain, lower extremity colopathy, degenerative disc disease, spondylolysis, facet arthrosis Postoperative Diagnosis: Same Procedure: Laminectomy and decompression L3-4 L4-[address] navigation aided Minimally invasive Posterior lateral decompression and facet and pars fusion L3-4 L4-5 Minimally invasive Transforaminal lumbar interbody fusion for a 360 fusion L3-4 L4-5 Discectomy for decompression L3-4 L4-5 Placement of interbody graft L3-4 L4-5 Use of computer navigation for fusion and placement of hardware Local autogenous bone grafting Aspiration of bone marrow from the vertebral body pedicle of L4 Use of bone graft extenders Surgeon: Dr. Cee Patient remains a significant pain. Activity per Ortho -Primary osteoarthritis multiple joints Pain medication as needed -Acute postprocedure blood loss anemia expected from surgery Add ferrous sulfate IV Ferrlecit -Hyperlipidemia Zocor 20 mg nightly -Hypothyroid Synthroid 175 mcg a day -Depression anxiety Zoloft 100 mg a day Discussed with patient. Patient took IV Ferrlecit. Thank you Dr. Cee Past Medical History Past Medical History: Hyperlipidemia, Thyroid Disorder History of Any Multi-Drug Resistant Organisms: None Reported Past Surgical History: Appendectomy, Section, Orthopedic Surgery Additional Past Surgical History / Comment(s): RT ROTATOR CUFF REPAIR. COLONOSCOPY. BILAT CTR Past Anesthesia/Blood Transfusion Reactions: No Reported Reaction Past Psychological History: Anxiety, Depression Smoking Status: Never smoker Past Alcohol Use History: None Reported Past Drug Use History: None Reported
== END 2024-06-11 13:31 | disposition home or self-care (01) ==
LOC: OR 08:37 → 4SSUR 14:30 → OR 06-07 14:21 → 4SSUR 06-07 14:21
PROVIDERS: ADMIT Orthopaedic Surgery Orthopaedic Surgery of the Spine; ATTEND Orthopaedic Surgery Orthopaedic Surgery of the Spine
DX: M43.16 Spondylolisthesis, lumbar region (principal); M51.369 Other intervertebral disc degeneration, lumbar region without mention of lumbar back pain or lower extremity pain; M47.26 Other spondylosis with radiculopathy, lumbar region; M51.16 Intervertebral disc disorders with radiculopathy, lumbar region; M48.061 Spinal stenosis, lumbar region without neurogenic claudication; M47.22 Other spondylosis with radiculopathy, cervical region; E03.9 Hypothyroidism, unspecified; E78.5 Hyperlipidemia, unspecified; F32.A Depression, unspecified; F41.9 Anxiety disorder, unspecified; M15.9 Polyosteoarthritis, unspecified; D62 Acute posthemorrhagic anemia; Z79.1 Long term (current) use of non-steroidal anti-inflammatories (NSAID); Z79.890 Hormone replacement therapy; Z79.899 Other long term (current) drug therapy
CPT/HCPCS: 22630; 22632; 22853 ×2; 20939; 20931; 20936; 61783; 96376 ×4; 96365 ×2; 96375; 97530; 97161; 86891; 80048; 85025 ×2; 72100; G0378 ×5; G0379; C1713 ×2; C1762; J2250; J0330; J0690 ×3; J2405 ×2; J2003; J3010; J2916; J1171 ×6; J2704; J2371; J0665; J1596